=== PATIENT | female | born 1935 | race Caucasian/White ===

== ENCOUNTER 2019-10-24 09:05 | Emergency (ER) | payer MEDICARE ==
[~2019-10-24] VITALS: Ht 160 cm; Wt 76.8 kg
[~2019-10-24 09:05] MED LIST: ASPI-1071 PO; CLOP75TA15 PO; HYDR12.5 PO; LOSA25TA96 PO; METO25TA6 PO; POTA10TA19 PO
[2019-10-24 09:11] VITALS: BP_DIAS 104
[2019-10-24] MEDS ORDERED: oxyCODONE/APAP 5-325mg tablet PO ONE (09:25)
[2019-10-24] MEDS ORDERED: ondansetron 4mg rapidly disintigrating tab PO ONE (09:25)
[2019-10-24] MEDS ORDERED: DOCU-148 PO (10:34)
[2019-10-24] MEDS ORDERED: ONDA4TAB6 PO (10:34)
[2019-10-24] MEDS ORDERED: HYDR-4383 PO (10:34)
[2019-10-24 11:10] VITALS: BP_SYST 52
== END 2019-10-24 11:13 | disposition home or self-care (01) ==
LOC: ER 09:05
DX: S42.202A Unspecified fracture of upper end of left humerus, initial encounter for closed fracture (principal); I10 Essential (primary) hypertension; I25.10 Atherosclerotic heart disease of native coronary artery without angina pectoris; E78.00 Pure hypercholesterolemia, unspecified; I25.2 Old myocardial infarction; K21.9 Gastro-esophageal reflux disease without esophagitis; G89.29 Other chronic pain; F41.9 Anxiety disorder, unspecified; Z90.49 Acquired absence of other specified parts of digestive tract; Z95.1 Presence of aortocoronary bypass graft; Z98.890 Other specified postprocedural states; Z72.89 Other problems related to lifestyle; Z88.8 Allergy status to other drugs, medicaments and biological substances; Z79.82 Long term (current) use of aspirin; Z79.899 Other long term (current) drug therapy; W01.0XXA Fall on same level from slipping, tripping and stumbling without subsequent striking against object, initial encounter; Y93.G1 Activity, food preparation and clean up; Y92.89 Other specified places as the place of occurrence of the external cause; Y99.8 Other external cause status
CPT/HCPCS: 29105; 73030; 99284

== ENCOUNTER 2020-07-05 11:34 | Emergency (ER) | payer MEDICARE ==
[~2020-07-05] VITALS: Ht 160 cm; Wt 76.8 kg
[~2020-07-05 11:34] MED LIST changes: +DOCU-148 PO; +HYDR-4383 PO; +ONDA4TAB6 PO
[2020-07-05] MEDS ORDERED: HYDROcodone/acetaminophen 5mg/325mg tablet PO ONE (13:00)
--- NOTE | 2020-07-05 14:20 | NUR ---
MD AWARE OF BP, NO NEW ORDERS AT THIS TIME.
[2020-07-05 14:54] VITALS: BP 191/58
== END 2020-07-05 14:52 | disposition home or self-care (01) ==
LOC: ER 11:35
DX: I10 Essential (primary) hypertension (principal); M25.511 Pain in right shoulder; M54.89 Other dorsalgia; M25.551 Pain in right hip; I25.10 Atherosclerotic heart disease of native coronary artery without angina pectoris; E78.00 Pure hypercholesterolemia, unspecified; I25.2 Old myocardial infarction; K21.9 Gastro-esophageal reflux disease without esophagitis; G89.29 Other chronic pain; F41.9 Anxiety disorder, unspecified; Z90.89 Acquired absence of other organs; Z98.890 Other specified postprocedural states; Z72.89 Other problems related to lifestyle; Z88.8 Allergy status to other drugs, medicaments and biological substances; Z79.82 Long term (current) use of aspirin; Z79.899 Other long term (current) drug therapy
CPT/HCPCS: 73010; 99284